=== PATIENT | male | born 1975 | race Caucasian/White ===

== ENCOUNTER 2022-01-07 12:13 | Emergency (ER) | payer SELFPAY | END 2022-01-07 13:10 | disposition home or self-care (01) | LOC: FER 12:13 | DX: S61.212A Laceration without foreign body of right middle finger without damage to nail, initial encounter (principal); W45.8XXA Other foreign body or object entering through skin, initial encounter; Y92.149 Unspecified place in prison as the place of occurrence of the external cause ==